=== PATIENT | female | born 1980 | race Two or more races ===

== ENCOUNTER 2017-05-22 22:41 | Emergency (ER) | payer MEDICAID ==
[~2017-05-22] VITALS: Ht 154.9 cm; Wt 62.0 kg
[2017-05-23] MEDS ORDERED: LIDOCAINE HCL 1% 20ML VIAL (Pyxis) INJ INFIL ONE (01:00)
[2017-05-23] MEDS ORDERED: KETOROLAC 60MG/2ML VIAL IM ONE (04:00)
[2017-05-23 05:15] VITALS: BP 119/69
== END 2017-05-23 05:17 | disposition home or self-care (01) ==
LOC: ER 22:41
DX: S52.591A Other fractures of lower end of right radius, initial encounter for closed fracture (principal); W01.0XXA Fall on same level from slipping, tripping and stumbling without subsequent striking against object, initial encounter; Y93.89 Activity, other specified; Y92.89 Other specified places as the place of occurrence of the external cause; Y99.8 Other external cause status
CPT/HCPCS: 25605; 73110; 73130; 96372; 99284; C1893; J1885; J3490; Z7610; A4565